=== PATIENT | female | born 1945 ===

== ENCOUNTER 2021-09-17 05:49 | Observation (INO) ==
[2021-09-17] MEDS ORDERED: Buffered Lidocaine 1% SYRIN 1 ml INTRADERM ONE (06:00)
[2021-09-17] MEDS ORDERED: Lactated Ringers 1000 ml BAG 1,000 ML IV SCH (06:00)
[2021-09-17] MEDS ORDERED: Clindamycin 900 MG/D5W BAG 900 MG/50 ML BAG IVPB ONE (06:11)
[2021-09-17] MEDS ORDERED: Rocuronium 50 mg VIAL 10 mg/ml 5 ml VIAL (50 mg) ONE ×2 (06:54→09:07)
[2021-09-17] MEDS ORDERED: Succinylcholine 200 mg VIAL 20 mg/ml 10 ml VIAL (200 mg) ONE (06:54)
[2021-09-17] MEDS ORDERED: Midazolam 2 mg/2 ml VIAL 1 mg/ml 2 ml VIAL (2 mg) ONE ×2 (06:54→07:12)
[2021-09-17] MEDS ORDERED: Propofol 10 MG/ML 20 ML BTL ONE (06:54)
[2021-09-17] MEDS ORDERED: Phenylephrine IV 10 MG/ML 1 ml VIAL ONE (06:54)
[2021-09-17] MEDS ORDERED: Dexmedetomidine 200 mcg/2 ml 2 ml VIAL (200 mcg) ONE (06:54)
[2021-09-17] MEDS ORDERED: Ondansetron 4 mg VIAL 2 MG/ML 2 ml VIAL ONE (06:54)
[2021-09-17] MEDS ORDERED: fentaNYL 250 mcg/5 ml 50 MCG/ML 5 ml VIAL (250 MCG) ONE (06:54)
[2021-09-17] MEDS ORDERED: Dexamethasone IV 4 MG/ML VIAL 1 ml VIAL ONE (06:54)
[2021-09-17] MEDS ORDERED: ROPIVACAINE 5 MG/ML 30 ML BTL (0.5%) ONE (07:03)
[2021-09-17] MEDS ORDERED: Lidocaine 1% MPF 5 ML VIAL ONE (07:03)
[2021-09-17] MEDS ORDERED: Vancomycin 1,000 MG VIAL ONE (07:04)
[2021-09-17] MEDS ORDERED: Bupivacaine 0.5% SDV PF 30ML VIAL ONE (07:04)
[2021-09-17] MEDS ORDERED: Lidocaine 2% PF 5 ML VIAL ONE (07:49)
[2021-09-17] MEDS ORDERED: Acetaminophen IV 1 GM/100ML 100 ML IV PRN (08:33)
[2021-09-17] MEDS ORDERED: fentaNYL 100 mcg/2 ml 50 MCG/ML VIAL IV PRN (08:33)
[2021-09-17] MEDS ORDERED: HYDROmorphone 1 MG/1 ML SYRINGE IV PRN (08:33)
[2021-09-17] MEDS ORDERED: Naloxone 0.4 mg VIAL 0.4 mg/ml 1 ml VIAL IV PRN (08:33)
[2021-09-17] MEDS ORDERED: Ondansetron 4 mg VIAL 2 MG/ML 2 ml VIAL IV PRN ×2 (08:33→11:10)
[2021-09-17] MEDS ORDERED: DiMENhydriNATE IV 50 mg/ml 1 ml VIAL IV PUSH PRN (08:33)
[2021-09-17] MEDS ORDERED: diPHENhydraMINE IV 50 MG/ML 1 ml VIAL (BENADRYL) IV PRN (11:10)
[2021-09-17] MEDS ORDERED: diPHENhydraMINE 25 mg TAB PO PRN (11:10)
[2021-09-17] MEDS ORDERED: Magnesium Hydroxide LIQ 30 ML UDC PO PRN (11:10)
[2021-09-17] MEDS ORDERED: Lactulose 30 ml UDC PO PRN (11:10)
[2021-09-17] MEDS ORDERED: Ondansetron ODT 4 mg TAB 4 MG TAB PO PRN (11:10)
[2021-09-17] MEDS: Lactated Ringers 1000 ml BAG 1,000 ML IV SCH ×2 (12:50→22:09)
[2021-09-17] MEDS: Clindamycin 600 MG/D5W BAG 600 MG/50 ML BAG IV SCH (16:13)
[2021-09-17] MEDS: Magnesium Hydroxide LIQ 30 ML UDC PO SCH (22:06)
[2021-09-18] MEDS: Clindamycin 600 MG/D5W BAG 600 MG/50 ML BAG IV SCH ×2 (00:19→07:44)
[2021-09-18 07:18] LABS: Hematocrit 31 % (35-47); Hemoglobin 10.6 g/dL (12.0-16.0); Platelet Count 151 10^3/uL (150-450)
[2021-09-18 07:45] LABS: Calcium 8.4 mg/dL (8.6-10.3); Potassium 3.9 mmol/L (3.5-5.0); eGFR CKD-EPI 82.2 (>60)
[2021-09-18 07:56] VITALS: BP 113/63
[2021-09-18] MEDS ORDERED: Vitamin THERAPEUTIC TAB PO SCH (09:00)
[2021-09-18] MEDS: Magnesium Hydroxide LIQ 30 ML UDC PO SCH (10:48)
== END 2021-09-18 13:00 | disposition home or self-care (01) ==
LOC: INTOOBSV 05:49 → AA 05:49 → SSU 12:22
PROVIDERS: ADMIT Orthopaedic Surgery; ATTEND Orthopaedic Surgery